=== PATIENT | male | born 1960 | race Hispanic/Latino ===

== ENCOUNTER → 2017-07-18 | Day surgery (SDC) | payer BC ==
[~2017-07-18] MED LIST: FENTANYL CITRATE/PF 100MCG/2 ML INJ ONE; HYOSCYAMINE SULFATE 0.5 MG/ML AMP ONE; MIDAZOLAM HCL 2 MG/2 ML VIAL ONE; NEXIUM20 MG PO; PROPOFOL IV EMULSION 10 MG/ML 50 ML VIAL ONE
--- NOTE | 2017-07-18 15:50 | Operative Report ---
DATE OF PROCEDURE: July 18, 2017 REFERRING PHYSICIAN: Dr. Devyn Webb. PROCEDURE PERFORMED: Colonoscopy and polypectomy. INDICATIONS FOR COLONOSCOPY: Colorectal cancer screening. Personal history of colon polyps. MEDICATION: Patient was done under MAC. Please see anesthesiologist's note. PROCEDURE: With the patient in the left lateral decubitus position, the flexible fiberoptic Olympus colonoscope was inserted into the rectum with ease and advanced all the way to the cecum. The scope was then withdrawn slowly. Mucosa overlying the cecum, ascending colon appeared to be within normal limits. One polyp was hot biopsied from the transverse colon. Descending, sigmoid and rectum grossly appeared to be within normal limits. The scope was then retroflexed into the distal rectum and small internal hemorrhoids were noted, none of which was actively bleeding. The scope was then straightened out. The rectosigmoid area as well as the distal rectal area were decompressed. The scope was subsequently withdrawn. Patient tolerated procedure well. IMPRESSION: 1. Transverse colon polyp hot biopsied. 2. Internal hemorrhoids, none actively bleeding. PLAN: Follow up histology. Initiate high-fiber low-fat diet. Initiate high-fiber supplement. Patient will need a followup colonoscopy in 3 years. Job#: [id number] EV cc:DEVYN WEBB DO
== END | disposition home or self-care (01) ==
LOC: OR 09:55
PROVIDERS: ATTEND Internal Medicine Gastroenterology
DX: Z12.11 Encounter for screening for malignant neoplasm of colon (principal); D12.3 Benign neoplasm of transverse colon; K64.8 Other hemorrhoids; K62.5 Hemorrhage of anus and rectum; K21.9 Gastro-esophageal reflux disease without esophagitis; R10.9 Unspecified abdominal pain; Z01.810 Encounter for preprocedural cardiovascular examination; Z80.0 Family history of malignant neoplasm of digestive organs
CPT/HCPCS: 45384; 93005; J1980; J2250